=== PATIENT | female | born 1985 | race Caucasian/White ===

== ENCOUNTER 2017-12-21 20:44 | Emergency (ER) | payer OTHER ==
[~2017-12-21] VITALS: Ht 165.1 cm; Wt 77.1 kg
[~2017-12-21 20:44] MED LIST: CIPRO500 MG PO; URETRON D-S TAB1 TAB PO
[2017-12-22] MEDS ORDERED: ZOFRAN8 MG PO (06:53)
[2017-12-22] MEDS ORDERED: PEPCID40 MG PO (06:53)
[2017-12-22] MEDS ORDERED: FLAGYL500MG PO (06:53)
[2017-12-22] MEDS ORDERED: CIPRO500 MG PO (06:53)
== END 2017-12-22 07:53 | disposition home or self-care (01) ==
LOC: ER 20:44
DX: K52.89 Other specified noninfective gastroenteritis and colitis (principal)